=== PATIENT | female | born 2000 | race Caucasian/White ===

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

== ENCOUNTER 2021-08-12 17:28 | Emergency (ER) | payer OTHER, SELFPAY ==
--- OUTSIDE RECORDS SUMMARY | 2021-08-12 17:31 | XMS REPORT | Continuity of Care Document ---
:2000 Author Organization [facility] [place] [facility] t Address [address] [place] [place] [address] Care Team Providers Name Role Phone Shelly NAM Primary Care Physician Unavailable AKINSIPE, C Attending Clinician Unavailable Shelly NAM Attending Clinician Unavailable Lab, Fam Pob I Attending Clinician Unavailable Jack ORTEZ, J Attending Clinician Erasmo JOHNSON Attending Clinician Unavailable Doctor Unassigned, Name Attending Clinician Unavailable Aruna MOLINA Attending Clinician Unavailable Merline CHIPPER FEEDER Attending Clinician Shelly Chavez Attending Clinician Sully REECEP Attending Clinician SULLY Attending Clinician Unavailable ANENE Attending Clinician Unavailable Pcp, Does Not Have A Attending Clinician Payers Payer Name Policy Type Policy Number Effective Date Expiration Date Anita harman [facility] [id number] 2021 00:00:00 FORMERLY [facility] [id number] 2019 [facility] MEDICAID 00:00:00 Problems This patient has no known problems. Allergies, Adverse Reactions, Alerts Allergy Allergy Status Severity Reaction(s) Onset Inactive Treating Comm ents Source Name Type Date Date Clinician Sulfa Propensi Active Hives Univers (Sulfona ty to 1-14 ity of mide adverse 00:00: [place] Antibiot reaction 00 Medica l ics) s Branch Cefixime Propensi Active Hives 2021-0 Univer s ty to 1-14 ity of adverse 00:00: [place] reaction 00 Medical s Branch PENICILL DRUG Active Hives 2020-0 Univers IN INGREDI 1-14 ity of 00:00: [place] 00 Medical Branch CEFIXIME DRUG Active Hives 2020-0 Univers INGREDI 1-14 ity of 00:00: [place] 00 Medical Branch CEFDINIR DRUG Active Hives 2020-0 Univers INGREDI 1-14 ity of 00:00: [place] 00 Medical Branch SULFA Drug Active Hives 0 Univers (SULFONA Class 1-14 ity of MIDE 00:00: [place] ANTIBIOT 00 Medical ICS) Branch Cefdinir Propensi Active Hives 0 Univer s ty to 1-14 ity of adverse 00:00: [place] reaction 00 Medical s Branch Penicill Propensi Active Hives 0 Univer s in ty to 1-14 ity of adverse 00:00: [place] reaction 00 Medical s Branch NO KNOWN Drug Active Univers ALLERGIE Class ity of S [facility] Social History Social Habit Start Date Stop Date Quantity Comments Source Exposure to Yes [facility] SARS-CoV-2 [place] [facility] (event) [place] Tobacco use and 2020-06-11 2020-06-11 Never used Universit y of exposure 00:00:00 00:00:00 [facility] Alcohol intake 2020-06-11 2020-06-11 Current drinker Unive rsity of 00:00:00 00:00:00 of alcohol [facility] (finding) [place] Alcohol Comment 2020-06-11 2020-06-11 socially Universit y of 00:00:00 00:00:00 [facility] Sex Assigned At [birth year] Universit y of 00:00:00 00:00:00 [facility] Smoking Status Start Date Stop Date Source Unknown if ever smoked Universit y of [facility] Never [facility] Medications Ordered Filled Start Stop Current Ordering Indication Dosage Frequency Signature Comments Components Source Medication Medication Date Date Medication? Clinician (SIG) Name Name levothyroxi Yes Take by Un medhat ne sodium 1-14 mouth. ity of (LEVOTHYROX 17:22: [place] INE ORAL) 25 Medical Branch levothyroxi Yes Take by Un medhat ne sodium 1-14 mouth. ity of (LEVOTHYROX 17:22: [place] INE ORAL) 25 Medical Branch levothyroxi Yes Take by Un medhat ne sodium 1-14 mouth. ity of (LEVOTHYROX 17:22: [place] INE ORAL) 25 Medical Branch levothyroxi Yes Take by Un medhat ne sodium 1-14 mouth. ity of (LEVOTHYROX 17:22: [place] INE ORAL) 25 Medical Branch levothyroxi Yes Take by Un medhat ne sodium 1-14 mouth. ity of (LEVOTHYROX 17:22: [place] INE ORAL) 25 Medical Branch levothyroxi Yes Take by Un medhat ne sodium 1-14 mouth. ity of (LEVOTHYROX 17:22: [place] INE ORAL) 25 Medical Branch levothyroxi Yes Take by Un medhat ne sodium 1-14 mouth. ity of (LEVOTHYROX 17:22: [place] INE ORAL) 25 [facility] Immunizations Ordered Filled Immunization Date Status Comments [facility] e Immunization Name Name SARS-COV-2 COVID-19 2020-09-09 Completed Unive rsity of PFIZER VACCINE 00:00:00 [facility] SARS-COV-2 COVID-19 2020-09-09 Completed Unive rsity of PFIZER VACCINE 00:00:00 [facility] SARS-COV-2 COVID-19 2020-08-20 Completed Unive rsity of PFIZER VACCINE 00:00:00 [facility] SARS-COV-2 COVID-19 2020-08-20 Completed Unive rsity of PFIZER VACCINE 00:00:00 [facility] Influenza Virus 2020-06-11 Completed Universit y of Vaccine Quad .5 mL 00:00:00 [facility] IM 6+ MO Branch Influenza Virus 2020-06-11 Completed Universit y of Vaccine Quad .5 mL 00:00:00 [facility] IM 6+ MO Branch Influenza Virus 2020-06-11 Completed Universit y of Vaccine Quad .5 mL 00:00:00 [facility] IM 6+ MO Branch Influenza Virus 2020-06-11 Completed Universit y of Vaccine Quad .5 mL 00:00:00 [facility] IM 6+ MO Branch Influenza Virus 2020-06-11 Completed Universit y of Vaccine Quad .5 mL 00:00:00 [facility] IM 6+ MO Branch Influenza Virus 2020-06-11 Completed Universit y of Vaccine Quad .5 mL 00:00:00 [facility] IM 6+ MO Branch Influenza Virus 2020-06-11 Completed Universit y of Vaccine Quad .5 mL 00:00:00 [facility] IM 6+ MO Branch Vital Signs Vital Name Observation Time Observation Value Comments Source Systolic blood 2020-06-11 16:57:00 118 mm[Hg] Univer sity of pressure [facility] Diastolic blood 2020-06-11 16:57:00 70 mm[Hg] Unive rsity of [facility] Heart rate 2020-06-11 16:57:00 60 /min [facility] Body temperature 2020-06-11 16:57:00 37.06 [facility] Respiratory rate 2020-06-11 16:57:00 16 /min [facility] Body height 2020-06-11 16:57:00 160 cm [facility] Body weight 2020-06-11 16:57:00 71.986 kg [facility] BMI 2020-06-11 16:57:00 28.11 kg/m2 [facility] Procedures Procedure Date / Time Performed Performing Clinician [facility] e EXTERNAL PROVIDER 2020-09-11 05:01:00 Doctor Unassigned, No [facility] RECORDS [facility] FLU VACC ([id number]), 2020-06-11 17:37:12 Guerita Nam [facility], IM, QUAD Medical Bran ch ASSIGNMENT OF BENEFITS 2020-06-11 16:29:47 Doctor Unassigned, No [facility] Name Medical Branch REFERRAL- 2020-05-26 06:01:00 Doctor Unassigned, No [facility] REQUEST/RESPONSE Name [facility] Encounters Start End Encounter Admission Attending Care Care Encounter Source Date/Time Date/Time Type Type Clinicians Facility Department ID 2021-08-05 2021-08-05 Outpatient R LORI [facility] [id number] Univers 15:15:00 15:15:00 SUDHA [id number] ity o f [facility] 2021-08-05 2021-08-05 Outpatient R LORI, [facility] [id number] Univers 15:15:00 15:15:00 SUDHA marry o [facility] 2021-06-16 2021-06-16 Outpatient R LORI, [facility] [id number] Univers 13:45:00 13:45:00 SUDHA [id number] ity o [facility] 2021-06-16 2021-06-16 Outpatient R LORI, [facility] [id number] Univers 13:45:00 13:45:00 SUDHA florence o [facility] 2021-06-14 2021-06-14 Outpatient R YINKA, [facility] [id number] Univers 15:00:00 15:00:00 GUERITA [id number] davian o [facility] 2021-06-14 2021-06-14 Outpatient R YINKA, [facility] [id number] Univers 15:00:00 15:00:00 GUERITA [facility] 2020-12-13 2020-12-13 Laboratory Lab, Adc Fam Pob I [facility] 1.2. 840.114 [id number] Univers 09:27:55 09:47:55 Only Anusha Johnson [facility] [id number] ity of [place] [id number] Devendra as Professio [phone] [address] Office [facility] One 2020-12-13 2020-12-13 Outpatient R JACK [facility] [id number] Univers 09:20:00 09:20:00 ANUSHA ity o [facility] 2020-12-13 2020-12-13 Outpatient R [facility] [id number] Univers 09:00:00 09:00:00 [id number] ity of [facility] 2020-09-11 2020-09-11 Orders Doctor HOUSE 1.2.840.114 [id number] Univers 00:00:00 00:00:00 Only Unassigned, ZACH [id number] ity of [place] [facility] [id number] Devendra as [phone] [address] 2020-09-10 2020-09-10 Outpatient R JESSE [facility] [id number] Univers 08:00:00 08:00:00 [facility] 2020-09-09 2020-09-09 Outpatient R JESSE [facility] [id number] Univers 08:10:00 08:10:00 MARSHALL [facility] 2020-08-20 2020-08-20 [facility] [id number] Univers 08:00:00 07:59:25 MARSHALL [facility] 2020-06-12 2020-06-12 Laboratory Lab, Adc Fam Pob I [facility] 1.2. 840.114 [id number] Univers 15:20:50 15:40:50 Only Merline [facility] [id number] [facility] [id number] Devendra as Professio [phone] Hi dical [address] Office Building One 2020-06-12 2020-06-12 Outpatient R [facility] [id number] Univers 15:20:00 15:20:00 [id number] ity [facility] 2020-06-12 2020-06-12 Outpatient R [facility] [id number] Univers 15:20:00 15:20:00 [facility] 2020-06-11 2020-06-11 [facility] 1.2.840.114 [id number] Univers 10:39:27 11:52:50 Visit Floramatilda Bravo [employer]NA[employer] [id number] [facility] [id number] Devendra as MATERNAL [phone] Med ical & CHILD [address] [place] [address] 2020-06-11 2020-06-11 [facility] [id number] Univers 10:00:00 11:52:50 GUERITA marry o [facility] 2020-06-11 2020-06-11 [facility] [id number] Univers 10:00:00 10:00:00 GUERITA [id number] ity o [facility] 2020-06-112020-06-11 Outpatient R YINKA [facility] [id number] Univers 10:00:00 10:00:00 GUERITA ity o f [facility] 2020-06-11 2020-06-11 Orders Doctor LACY 1.2.840.114 [id number] Univers 00:00:00 00:00:00 Only Unassigned, ZACH [id number] ity of [place] [facility]PITAL [id number] Devendra as [phone] [address] 2020-05-26 2020-05-26 Orders Doctor LACY 1.2.840.114 [id number] Univers 00:00:00 00:00:00 Only Unassigned, ZACH [id number] ity of [place] [facility]OSPITAL [id number] Devendra as [phone] [address] 2020-04-19 2020-04-19 Laboratory Lab, [facility] Fam Pob I [facility] 1.2. 840.114 [id number] Univers 08:22:30 08:42:30 Only Green, [facility] [id number] ity of [place] [id number] Devendra as Professio [phone] Hi dical [address] Office Building [facility] 2020-04-19 2020-04-19 Outpatient R [facility] [id number] Univers 08:20:00 08:20:00 [id number] ity [facility] 2020-04-19 2020-04-19 [facility] [id number] Univers 08:20:00 08:20:00 SAMANTHA ity [facility] 2020-01-02 2020-01-02 Laboratory Lab, [facility] 1.2.840.114 [id number] 09:29:38 09:49:38 Only Fam Pob I Health [id number] [place] [id number] Professio [phone] nal [facility] Office Building [facility] 2020-01-02 2020-01-02 Laboratory Lab, [facility] Fam Pob I [facility] 1.2. 840.114 [id number] Univers 09:29:38 09:49:38 Only Anene, [facility] [id number] ity of [place] [id number] Devendra as Professio [phone] Hi dical [address] Office [facility] 2020-01-02 2020-01-02 Outpatient R EMRLINE [facility] [id number] Univers 09:20:00 09:20:00 SHIKHA ity of [facility] 2020-01-02 2020-01-02 Letter Doctor LACY 1.2.840.114 [id number] 00:00:00 00:00:00 (Out) Unassigned, ZACH [id number] [place] [facility] [id number] [phone] [facility] 2020-01-02 2020-01-02 Letter Pcp, [facility] 1.2.840.114 [id number] 00:00:00 00:00:00 (Out) Patient Health [id number] Does Not [place] [id number] Have A Professio [phone] [address] 2020-01-02 2020-01-02 Letter Doctor LACY 1.2.840.114 [id number] Univers 00:00:00 00:00:00 (Out) Unassigned, ZACH [id number] ity of [place] [facility]OSPITAL [id number] Devendra as [phone] [address] 2020-01-02 2020-01-02 Letter Pcp, [facility] 1.2.840.114 [id number] Univers 00:00:00 00:00:00 (Out) Patient Health [id number] it y of Does Not [id number] [place] Have [place] Professio [phone] Hi dical nal [address] [place] Office Building One Results This patient has no known results.
[2021-08-12 19:22] LABS: SARS-COV-2 RT PCR POSITIVE (NEGATIVE)
--- NOTE | 2021-08-12 20:04 | EDPHYS ---
Physician Documentation [facility] Name: Nasra Whitmore Age: 21 yrs Sex: Female : 2000 Arrival Date: 08/12/2021 Time: 17:30 Bed 26 Private MD: ED Physician Augie Patterson HPI: 08/12 17:46 This 21 yrs old Female presents to ER via Unassigned with complaints of Sore Throat, kb Cough. 17:46 The patient or guardian reports cough, that is intermittent, described as mild, flu kb symptoms, low-grade fever. Onset: The symptoms/episode began/occurred 2 day(s) ago. Severity of symptoms: At their worst the symptoms were moderate, in the emergency department the symptoms are unchanged. Modifying factors: The symptoms are alleviated by nothing, the symptoms are aggravated by nothing. Associated signs and symptoms: Pertinent positives: earache, fever, rhinorrhea, sore throat, Pertinent negatives: chest pain, diarrhea, nausea, vomiting. The patient has not experienced similar symptoms in the past. The patient has not recently seen a physician. 17:46 Pt reports cough, congestion, fever, chills, bilateral ear pain, and sore throat for 2 kb days, got worse last night and this morning. TMAX 102.3. 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 - Social history:: Smoking status: Patient denies any tobacco usage or history of. Patient uses alcohol, occasionally. street drugs, marijuana. ROS: 17:45 Abdomen/GI: Negative for abdominal pain, nausea, vomiting, diarrhea, and constipation. kb 17:45 Constitutional: Positive for chills, fever, malaise, Negative for body aches. 17:45 ENT: Positive for ear pain, rhinorrhea, sinus congestion, sore throat. 17:45 Respiratory: Positive for cough. 17:45 All other systems are negative. Exam: 17:45 Constitutional: This is a well developed, well nourished patient who is awake, alert, kb and in no acute distress. Head/Face: Normocephalic, atraumatic. ENT: Moist Mucous membranes Cardiovascular: Regular rate and rhythm with a normal S1 and S2. No gallops, murmurs, or rubs. No pulse deficits. Respiratory: Respirations even and unlabored. No increased work of breathing. Talking in full sentences Skin: Warm, dry with normal turgor. Normal color. MS/ Extremity: Pulses equal, no cyanosis. Neurovascular intact. Full, normal range of motion. Neuro: Awake and alert, GCS 15, oriented to person, place, time, and situation. Moves all extremities. Normal gait. Psych: Awake, alert, with orientation to person, place and time. Behavior, mood, and affect are within normal limits. 17:45 ENT: External ear(s): are unremarkable, Ear canal(s): are normal, TM's: are normal, Posterior pharynx: is normal. Vital Signs: 17:51 BP 130 / 93; Pulse 109; Resp 18; Temp 98.3(O); Pulse Ox 100% on R/A; Weight 72.57 kg; ld1 Height 5 ft. 3 in. (160.02 cm); Pain 0/10; 18:42 BP 129 / 88; Pulse 101; Resp 18; Pulse Ox 100% on R/A; Pain 0/10; ld1 20:19 BP 129 / 88; Pulse 89; Resp 20; Pulse Ox 100% on R/A; sf1 17:51 Body Mass Index 28.34 (72.57 kg, 160.02 cm) ld1 MDM: 17:43 Patient medically screened. kb 17:45 Data reviewed: vital signs, nurses notes. Data interpreted: Pulse oximetry: on room air kb is 100 %. Interpretation: normal. Transition of care: After a detail discussion of the patient's case, care is transferred to Jon RICHARD 08/12 17:45 Order name: COVID-19/FLU A+B (Document "Date of Onset" if Symptomatic); Complete Time: kb 19:52 08/12 19:52 Interpretation: Reviewed. cp 08/12 17:45 Order name: Strep; Complete Time: 19:52 kb 08/12 18:11 Order name: Throat Culture EDMS Administered Medications: No medications were administered Disposition: 08/13 09:27 I agree with the assessment and plan of care. PA/SURGICAL ASSISTANT CERTIFIED's history reviewed, patient neena interviewed, and examined. I agree with assessment and care plan and confirm the diagnosis (es) above. Attestation: The patient's history, exam findings, diagnostics, and a summary of any interventions or procedures was reviewed in detail with Jon DEL ROSARIO. Disposition Summary: 08/12/21 20:03 Discharge Ordered Location: Home cp Problem: new cp Symptoms: are unchanged cp Condition: Stable cp Diagnosis - SARS-associated coronavirus as the cause of diseases classified elsewhere cp Followup: cp - With: Private Physician - When: 2 - 3 days - Reason: Worsening of condition Discharge Instructions: - Discharge Summary Sheet cp - Form - Excuse from Work, School, or Physical Activity cp - COVID-19 cp - Things to Know about the COVID-19 Pandemic - [facility] cp - 10 Things You Can Do to Manage Your COVID-19 Symptoms at Home - [facility] cp - COVID-19: Quarantine vs. Isolation - [facility] cp - Prevent the Spread of COVID-19 if You Are Sick - [facility] cp Forms: - Medication Reconciliation Form cp - Thank You Letter cp - Antibiotic Education cp - Prescription Opioid Use cp Prescriptions: - Ibuprofen 800 mg Oral Tablet - take 1 tablet by ORAL route every 8 hours As needed take with food; 30 tablet; cp Refills: 0, Product Selection Permitted - Tessalon Perles 100 mg Oral Capsule - take 1 capsule by ORAL route every 8 hours As needed; 15 capsule; Refills: 0, cp Product Selection Permitted Signatures: Dispatcher [employer] EDMS Tamika Burgess FNP-C FNP-Jon Gonzalez PA PA cp Debbie Dye RN RN ld1 Augie Patterson MD MD [id number]
--- NOTE | 2021-08-12 20:04 | ER ---
Nurse's Notes [facility] Name: Nasra Whitmore Age: 21 yrs Sex: Female : 2000 Arrival Date: 08/12/2021 Time: 17:30 Bed 26 Private MD: Diagnosis: SARS-associated coronavirus as the cause of diseases classified elsewhere Presentation: 08/12 17:51 Chief complaint: Patient states: fever, chills, sore throat, congestion, cough, RONDA ear ld1 pain X 2 days. Coronavirus screen: Client presents with at least one sign or symptom that may indicate coronavirus-19. Standard/surgical mask placed on the client. Ebola Screen: No symptoms or risks identified at this time. Initial Sepsis Screen: Does the patient meet any 2 criteria? No. Patient's initial sepsis screen is negative. Does the patient have a suspected source of infection? No. Patient's initial sepsis screen is negative. Risk Assessment: Do you want to hurt yourself or someone else? Patient reports no desire to harm self or others. Onset of symptoms was August 12, 2021. 17:51 Method Of Arrival: Ambulatory ld1 17:51 Acuity: JEANNINE 4 ld1 Triage Assessment: 17:52 General: Appears in no apparent distress. comfortable, Behavior is calm, cooperative, ld1 appropriate for age. Pain: Denies pain. EENT: Reports sore throat. Neuro: Level of Consciousness is awake, alert, obeys commands, Oriented to person, place, time, situation. Cardiovascular: Capillary refill < 3 seconds Patient's skin is warm and dry. Respiratory: Airway is patent Respiratory effort is even, unlabored, Respiratory pattern is regular, symmetrical. GI: Abdomen is flat, non-distended. : No signs and/or symptoms were reported regarding the genitourinary system. Derm: No signs and/or symptoms reported regarding the dermatologic system. Musculoskeletal: No signs and/or symptoms reported regarding the musculoskeletal system. 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 - Social history:: Smoking status: Patient denies any tobacco usage or history of. Patient uses alcohol, occasionally. street drugs, marijuana. Screenin:53 Abuse screen: Denies threats or abuse. Denies injuries from another. Nutritional ld1 screening: No deficits noted. Tuberculosis screening: No symptoms or risk factors identified. Fall Risk None identified. Assessment: 17:53 Reassessment: see triage assessment. Respiratory: Airway is patent Respiratory effort ld1 is even, unlabored, Breath sounds are clear bilaterally. 18:47 Reassessment: Patient appears in no apparent distress at this time. Patient and/or ld1 family updated on plan of care and expected duration. Pain level reassessed. Patient is alert, oriented x 3, equal unlabored respirations, skin warm/dry/pink. Vital Signs: 17:51 BP 130 / 93; Pulse 109; Resp 18; Temp 98.3(O); Pulse Ox 100% on R/A; Weight 72.57 kg; ld1 Height 5 ft. 3 in. (160.02 cm); Pain 0/10; 18:42 BP 129 / 88; Pulse 101; Resp 18; Pulse Ox 100% on R/A; Pain 0/10; ld1 20:19 BP 129 / 88; Pulse 89; Resp 20; Pulse Ox 100% on R/A; sf1 17:51 Body Mass Index 28.34 (72.57 kg, 160.02 cm) ld1 ED Course: 17:30 Patient arrived in ED. ds1 17:32 Tamika Burgess FNP-C is PHCP. kb 17:32 Augie Patterson MD is Attending Physician. kb 17:50 PHCP role handed off by Tamika Burgess FNP-C cp 17:50 Jon Gonzalez PA is PHCP. cp 17:51 Debbie Dye, LEE ANN is Primary Nurse. ld1 17:51 Triage completed. ld1 17:52 Arm band placed on left wrist. ld1 17:53 Patient has correct armband on for positive identification. Placed in gown. Bed in low ld1 position. Call light in reach. Side rails up X2. Pulse ox on. NIBP on. Door closed. Noise minimized. Warm blanket given. 17:53 No provider procedures requiring assistance completed. ld1 17:54 COVID-19/FLU A+B (Document "Date of Onset" if Symptomatic) Sent. ld1 17:54 Strep Sent. ld1 20:20 Patient did not have IV access during this emergency room visit. sf1 Administered Medications: No medications were administered Outcome: 20:03 Discharge ordered by . katie 20:19 Discharged to home ambulatory. sf1 20:19 Condition: stable 20:19 Discharge instructions given to patient, Instructed on discharge instructions, follow up and referral plans. Demonstrated understanding of instructions, follow-up care, medications, Prescriptions given X 2. 20:20 Patient left the ED. sf1 Signatures: Tamika Burgess, [employer]CH[employer]ER-C [employer] MERCH[employer]ER-Karo Martinez ds1 Jon Gonzalez PA PA cp Dibbern, Lauren, RN RN ld1 Zahraa Kaba RN RN sf1
[2021-08-12 20:36] VITALS: TEMP 98.3; O2SAT 100
[2021-08-12 20:37] VITALS: BP 129/88
== END 2021-08-12 20:20 | disposition home or self-care (01) ==
LOC: ER 17:28
DX: U07.1 COVID-19 (principal); H92.03 Otalgia, bilateral; E07.9 Disorder of thyroid, unspecified; Z88.0 Allergy status to penicillin; Z88.1 Allergy status to other antibiotic agents; Z88.2 Allergy status to sulfonamides; Z88.8 Allergy status to other drugs, medicaments and biological substances
CPT/HCPCS: 0240U; 87070; 87081; 99283

== ENCOUNTER 2021-09-28 05:31 | Emergency (ER) | payer SELFPAY ==
--- OUTSIDE RECORDS SUMMARY | 2021-09-28 05:35 | XMS REPORT | Continuity of Care Document ---
:2000 Author Organization [facility] [place] [facility] t Address [address] [place] [address] Care Team Providers Name Role Phone Yinka ORTEZ, Shelly Primary Care Physician Raven RN, L Attending Clinician Unavailable Glen SANDOVAL Attending Clinician Unavailable Shelly NAM Attending Clinician Unavailable Lab, Fam Pob I Attending Clinician Unavailable Erasmo Ramsey Attending Clinician Erasmo JOHNSON Attending Clinician Unavailable Doctor Unassigned, Name Attending Clinician Unavailable Aruna MOLINA Attending Clinician Unavailable Merline ORTEZ Attending Clinician Shelly Chavez Attending Clinician Sully REECEP Attending Clinician SULLY Attending Clinician Unavailable ANENE Attending Clinician Unavailable Pcp, Does Not Have A Attending Clinician Payers Payer Name Policy Type Policy Number Effective Date Expiration Date Formerly [facility] [id number] 2019 [employer] MEDICA[employer] 00:00:00 Problems This patient has no known problems. Allergies, Adverse Reactions, Alerts Allergy Allergy Status Severity Reaction(s) Onset Inactive Treating Comm ents Source Name Type Date Date Clinician Penicill Propensi Active Hives 2020-0 Univer s in ty to 1-14 ity of adverse 00:00: [place] reaction 00 Medical s Branch Sulfa Propensi Active Hives 2020-0 Univers (Sulfona ty to 1-14 ity of mide adverse 00:00: [place] Antibiot reaction 00 Medica l ics) s Branch Cefixime Propensi Active Hives 2020-0 Univer s ty to 1-14 ity of [...] 00 Medical Branch SULFA Drug Active Hives 2020-0 Univers (SULFONA Class 1-14 ity of MIDE 00:00: [place] ANTIBIOT 00 Medical ICS) Branch Cefdinir Propensi Active Hives 2020-0 Univer s ty to 1-14 ity of adverse 00:00: [place] reaction 00 Medical s Branch NO KNOWN Drug Active Univers ALLERGIE Class ity of S [facility] Social History Social Habit Start Date Stop Date Quantity Comments Source Exposure to Yes University of SARS-CoV-2 [place] [facility] (event) [facility] History SDOH 2020-06-11 2020-06-11 99 University o f Alcohol Frequency 00:00:00 00:00:00 [place] [facility] History SDOH 2020-06-11 2020-06-11 99 University o f Alcohol Std 00:00:00 00:00:00 [place] [facility] History SDOH 2020-06-11 2020-06-11 99 University o f Alcohol Binge 00:00:00 00:00:00 [place] [facility] Tobacco use and 2020-06-11 2020-06-11 Never used Universit y of exposure 00:00:00 00:00:00 [facility] Alcohol intake 2020-06-11 2020-06-11 Current drinker Unive rsity of 00:00:00 00:00:00 of alcohol [place] [facility] (finding[facility] Alcohol Comment 2020-06-11 2020-06-11 socially Universit y of 00:00:00 00:00:00 [facility] Sex Assigned At [birth year] Universit y of 00:00:00 00:00:00 [facility] Smoking Status Start Date Stop Date Source Unknown if ever smoked [facility] Never smoker [facility] Medications Ordered Filled Start Stop Current Ordering Indication Dosage Frequency Signature Comments Components Source Medication Medication Date Date Medication? Clinician (SIG) Name Name levothyroxi Yes Take by Un medhat ne sodium 1-14 mouth. ity of (LEVOTHYROX 17:22: [place] INE ORAL) [facility] levothyroxi Yes Take by Un medhat ne sodium 1-14 mouth. ity of (LEVOTHYROX 17:22: [place] INE ORAL) 25 [facility] levothyroxi Yes Take by Un medhat ne sodium 1-14 mouth. ity of (LEVOTHYROX 17:22: [place] INE ORAL) 25 [facility] levothyroxi Yes Take by Un medhat ne sodium 1-14 mouth. ity of (LEVOTHYROX 17:22: [place] INE ORAL) 25 [facility] levothyroxi Yes Take by Un medhat ne sodium 1-14 mouth. ity of (LEVOTHYROX 17:22: [place] INE ORAL) 25 [facility] levothyroxi Yes Take by Un medhat ne sodium 1-14 mouth. ity of (LEVOTHYROX 17:22: [place] INE ORAL) 25 [facility] levothyroxi Yes Take by Un medhat ne sodium 1-14 mouth. ity of (LEVOTHYROX 17:22: [place] INE ORAL) 25 [facility] levothyroxi Yes Take by Un medhat ne sodium 1-14 mouth. ity of (LEVOTHYROX 11:22: [place] INE ORAL) [address] [place] [address] Immunizations Ordered Filled Immunization Date Status Comments Sour e Immunization Name Name SARS-COV-2 COVID-19 2020-09-09 Completed Unive rsity of PFIZER VACCINE 00:00:00 [facility] SARS-COV-2 COVID-19 2020-09-09 Completed Unive rsity of PFIZER VACCINE 00:00:00 [facility] SARS-COV-2 COVID-19 2020-09-09 Completed Unive rsity of PFIZER VACCINE 00:00:00 [facility] SARS-COV-2 COVID-19 2020-08-20 Completed Unive rsity of PFIZER VACCINE 00:00:00 [facility] SARS-COV-2 COVID-19 2020-08-20 Completed Unive rsity of PFIZER VACCINE 00:00:00 [facility] SARS-COV-2 COVID-19 2020-08-20 Completed Unive rsity of PFIZER VACCINE 00:00:00 [facility] Influenza Virus 2020-06-11 Completed Universit y of Vaccine Quad .5 mL 00:00:00 [facility] 6+ MO Branch Influenza Virus 2020-06-11 Completed Universit y of Vaccine Quad .5 mL 00:00:00 [facility] 6+ MO Branch Influenza Virus 2020-06-11 Completed Universit y of Vaccine Quad .5 mL 00:00:00 [facility] IM 6+ MO Branch Influenza Virus 2020-06-11 Completed Universit y of Vaccine Quad .5 mL 00:00:00 [place] [facility] 6+ MO Branch Influenza Virus 2020-06-11 Completed Universit y of Vaccine Quad .5 mL 00:00:00 [facility] 6+ MO Branch Influenza Virus 2020-06-11 Completed Universit y of Vaccine Quad .5 mL 00:00:00 [facility] 6+ MO Branch Influenza Virus 2020-06-11 Completed Universit y of Vaccine Quad .5 mL 00:00:00 [facility] 6+ MO Branch Influenza Virus 2020-06-11 Completed Universit y of Vaccine Quad .5 mL 00:00:00 [facility] 6+ MO Branch Vital Signs Vital Name Observation Time Observation Value Comments Source Systolic blood 2020-06-11 16:57:00 118 mm[Hg] Univer sity of pressure [facility] Diastolic blood 2020-06-11 16:57:00 70 mm[Hg] Unive rsity of pressure [facility] Heart rate 2020-06-11 16:57:00 60 /min [facility] Body temperature 2020-06-11 16:57:00 37.06 Maria E [facility] Respiratory rate 2020-06-11 16:57:00 16 /min [facility] Body height 2020-06-11 16:57:00 160 cm [facility] Body weight 2020-06-11 16:57:00 71.986 kg [facility] BMI 2020-06-11 16:57:00 28.11 kg/m2 [facility] Procedures Procedure Date / Time Performed Performing Clinician Sunita e EXTERNAL PROVIDER 2020-09-11 05:01:00 Doctor Unassigned, No [facility] RECORDS Name Medical Branch FLU VACC ([id number]), 2020-06-11 17:37:12 Guerita Nam [facility] 6+ MONTHS, IM, QUAD Medical Bran ch ASSIGNMENT OF BENEFITS 2020-06-11 16:29:47 Doctor Unassigned, No [facility] Name Medical Branch REFERRAL- 2020-05-26 06:01:00 Doctor Unassigned, No [facility] REQUEST/RESPONSE Name [facility] Encounters Start End Encounter Admission Attending Care Care Encounter Source Date/Time Date/Time Type Type Clinicians Facility Department ID 2021-09-02 2021-09-02 Telephone Raven NIÑO [id number] Univers 00:00:00 00:00:00 , Chantell DECKER [id number] [id number] [phone] [facility] 086 Branch 2021-08-05 2021-08-05 Outpatient R AKINSIPE, [facility] [id number] Univers 15:15:00 15:15:00 SUDHA [id number] ity o f [facility] 2021-08-05 2021-08-05 Outpatient R AKINSIPE, [facility] [id number] Univers 15:15:00 15:15:00 SUDHA ity o [facility] 2021-06-16 2021-06-16 Outpatient R AKINSIPE, [facility] [id number] Univers 13:45:00 13:45:00 SUDHA [id number] ity o [facility] 2021-06-16 2021-06-16 Outpatient R AKINSIPE, [facility] [id number] Univers 13:45:00 13:45:00 SUDHA ity o [facility] 2021-06-14 2021-06-14 Outpatient R YINKA, [facility] [id number] Univers 15:00:00 15:00:00 GUERITA [id number] ity o f [facility] 2021-06-14 2021-06-14 Outpatient R YINKA [facility] [id number] Univers 15:00:00 15:00:00 GUERITA ity o f [facility] 2020-12-13 2020-12-13 Laboratory Lab, [facility] 1.2. [id number] Univers 09:27:55 09:47:55 Only Anusha [facility] [id number] ity of [place] [id number] Devendra as Professio [phone] [address] Office [address] 2020-12-13 2020-12-13 Outpatient R ALEX [facility] [id number] Univers 09:20:00 09:20:00 ANUSHA ity o [facility] 2020-12-13 2020-12-13 Outpatient R [facility] [id number] Univers 09:00:00 09:00:00 [id number] ity [facility] 2020-09-11 2020-09-11 Orders Doctor LACY [id number] Univers 00:00:00 00:00:00 Only Unassigned, ZACH [id number] ity of [place] [facility] [id number] Devendra as [phone] [address] 2020-09-10 2020-09-10 [facility] [id number] Univers 08:00:00 08:00:00 MARSHALL ity [facility] 2020-09-09 2020-09-09 Outpatient R JESSE [facility] [id number] Univers 08:10:00 08:09:26 MARSHALL ity [facility] 2020-08-20 2020-08-20 Out[facility] [id number] Univers 08:00:00 07:59:25 MARSHALL ity [facility] 2020-06-12 2020-06-12 Laboratory Lab, [facility] 1.2. [id number] Univers 15:20:50 15:40:50 Only Shikha Rick [facility] [id number] ity [facility] [id number] Devendra as Professio [phone] Va dical [address] Office [facility] 2020-06-12 2020-06-12 Outpatient R [facility] [id number] Univers 15:20:00 15:20:00 [id number] ity [facility] 2020-06-12 2020-06-12 Outpatient R [facility] [id number] Univers 15:20:00 15:20:00 ity [facility] 2020-06-11 2020-06-11 Office [facility] [id number] Univers 10:39:27 11:52:50 Visit Florarory Bravo [employer] [id number] ity [facility] [id number] Devendra as MATERNAL [phone] Med ical & CHILD [address] [place] [address] 2020-06-11 2020-06-11 [facility] [id number] Univers 10:00:00 11:52:50 ROSNDA ity o [facility] 2020-06-11 2020-06-11 Outpatient [facility] [id number] Univers 10:00:00 10:00:00 FLORARORY [id number] ity o [facility] 2020-06-11 2020-06-11 Out[facility] [id number] Univers 10:00:00 10:00:00 ROSNDA ity o [facility] 2020-06-11 2020-06-11 Orders Doctor HOUSE [id number] Univers 00:00:00 00:00:00 Only Unassigned, ZACH [id number] ity of [facility] [id number] Devendra as [phone] [address] 2020-05-26 2020-05-26 Orders Doctor HOUSE [id number] Univers 00:00:00 00:00:00 Only Unassigned, ZACH [id number] ity of [place] [facility] [id number] Devendra as [phone] [address] 2020-04-19 2020-04-19 Laboratory Lab, [facility] Fam Pob I [facility] 1.2. 840.114 [id number] [facility] 08:22:30 08:42:30 Only [facility] [id number] ity of [place] [id number] Devendra as Professio [phone] Va dical nal [address] [place] [address] Office [facility] 2020-04-19 2020-04-19 Outpatient R [facility] [id number] Univers 08:20:00 08:20:00 [id number] ity of [facility] 2020-04-19 2020-04-19 Outpatient [facility] [id number] [facility] 08:20:00 08:20:00 SAMANTHA ity of [facility] 2020-01-02 2020-01-02 Laboratory Lab, [facility] [id number] 09:29:38 09:49:38 Only Fam Pob I Health [id number] [place] [id number] Professio [phone] [place] [address] Office [facility] 2020-01-02 2020-01-02 Laboratory Lab, [facility] Fam Pob I [facility] 1.2. 840.114 [id number] [facility] 09:29:38 09:49:38 Only Anejackeline, Shikha Health [id number] ity of [place] [id number] Devendra as Professio [phone] Va dical nal [address] [place] [address] Office Building [facility] 2020-01-02 2020-01-02 Outpatient R KIERANJACKELINE [facility] [id number] Univers 09:20:00 09:20:00 SHIKHA ity of [facility] 2020-01-02 2020-01-02 Letter Doctor HOUSE [id number] 00:00:00 00:00:00 (Out) Unassigned, ZACH [id number] [place] [facility] [phone] [facility] 2020-01-02 2020-01-02 Letter Pcp, [facility] 1.2.840.114 [id number] 00:00:00 00:00:00 (Out) Patient Health [id number] Does Not [place] [id number] Have A Professio [phone] [place] [address] [address] [facility] 2020-01-02 2020-01-02 Letter Doctor LACY 1.2.840.114 [id number] Univers 00:00:00 00:00:00 (Out) Unassigned, ZACH [id number] ity of [place] [facility] [id number] Devendra as [phone] [address] 2020-01-02 2020-01-02 Letter Pcp, [facility] 1.2.840.114 [id number] Univers 00:00:00 00:00:00 (Out) Patient Health [id number] it y of Does Not [id number] Have A Professio [phone] Va dical [address] Office [address] [facility] Results This patient has no known results.
--- NOTE | 2021-09-28 06:49 | EDPHYS ---
Physician Documentation [facility] Name: Nasra Whitmore Age: 21 yrs Sex: Female : 2000 Arrival Date: 09/28/2021 Time: 05:32 Bed 12 Private MD: BE Physician Jon Richardson HPI: 09/28 06:45 This 21 yrs old Female presents to ER via Ambulatory with complaints of flavia Insect Bite - Left foot. 06:45 The patient presents with a bite, by an insect. The complaints affect the left foot. flavia Context: The problem was sustained at an unknown location. Onset: The symptoms/episode began/occurred 2 day(s) ago. Modifying factors: The symptoms are alleviated by nothing, the symptoms are aggravated by. Associated signs and symptoms: The patient has no apparent associated signs or symptoms. Severity of symptoms: At their worst the symptoms were mild, in the emergency department the symptoms are unchanged. The patient has not experienced similar symptoms in the past. 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 - Social history:: Smoking status: Patient denies any tobacco usage or history of. - Family history:: not pertinent. ROS: 06:45 Constitutional: Negative for fever, chills, and weight loss, Eyes: Negative for injury, flavia pain, redness, and discharge, ENT: Negative for injury, pain, and discharge, Neck: Negative for injury, pain, and swelling, Cardiovascular: Negative for chest pain, palpitations, and edema, Respiratory: Negative for shortness of breath, cough, wheezing, and pleuritic chest pain, Abdomen/GI: Negative for abdominal pain, nausea, vomiting, diarrhea, and constipation, Back: Negative for injury and pain, : Negative for injury, bleeding, discharge, and swelling, MS/Extremity: Negative for injury and deformity, Neuro: Negative for headache, weakness, numbness, tingling, and seizure, Psych: Negative for depression, anxiety, suicide ideation, homicidal ideation, and hallucinations, Allergy/Immunology: Negative for hives, rash, and allergies, Endocrine: Negative for neck swelling, polydipsia, polyuria, polyphagia, and marked weight changes, Hematologic/Lymphatic: Negative for swollen nodes, abnormal bleeding, and unusual bruising. 06:45 Skin: Positive for erythema, swelling, of the anterior aspect of left ankle. Exam: 06:45 Constitutional: This is a well developed, well nourished patient who is awake, alert, flavia and in no acute distress. Head/Face: Normocephalic, atraumatic. Eyes: Pupils equal round and reactive to light, extra-ocular motions intact. Lids and lashes normal. Conjunctiva and sclera are non-icteric and not injected. Cornea within normal limits. Periorbital areas with no swelling, redness, or edema. ENT: Nares patent. No nasal discharge, no septal abnormalities noted. Tympanic membranes are normal and external auditory canals are clear. Oropharynx with no redness, swelling, or masses, exudates, or evidence of obstruction, uvula midline. Mucous membranes moist. Neck: Trachea midline, no thyromegaly or masses palpated, and no cervical lymphadenopathy. Supple, full range of motion without nuchal rigidity, or vertebral point tenderness. No Meningismus. Chest/axilla: Normal chest wall appearance and motion. Nontender with no deformity. No lesions are appreciated. Cardiovascular: Regular rate and rhythm with a normal S1 and S2. No gallops, murmurs, or rubs. Normal PMI, no JVD. No pulse deficits. Respiratory: Lungs have equal breath sounds bilaterally, clear to auscultation and percussion. No rales, rhonchi or wheezes noted. No increased work of breathing, no retractions or nasal flaring. Abdomen/GI: Soft, non-tender, with normal bowel sounds. No distension or tympany. No guarding or rebound. No evidence of tenderness throughout. Back: No spinal tenderness. No costovertebral tenderness. Full range of motion. Neuro: Awake and alert, GCS 15, oriented to person, place, time, and situation. Cranial nerves II-XII grossly intact. Motor strength 5/5 in all extremities. Sensory grossly intact. Cerebellar exam normal. Normal gait. Psych: Awake, alert, with orientation to person, place and time. Behavior, mood, and affect are within normal limits. 06:45 Skin: cellulitis, that is mild, induration, that is mild is noted, injury, bite(s), superficial. 06:45 Musculoskeletal/extremity: DVT Exam: No signs of deep vein thrombosis. no pain, no flavia swelling, negative Homans' sign noted on exam, no appreciated bluish discoloration, tenderness, erythema, increased warmth. Vital Signs: 05:45 BP 137 / 84; Pulse 60; Resp 16 S; Temp 98(O); Pulse Ox 100% on R/A; Weight 72.57 kg bb (R); Height 5 ft. 3 in. (160.02 cm) (R); Pain 3/10; 05:45 Body Mass Index 28.34 (72.57 kg, 160.02 cm) bb MDM: 06:14 Patient medically screened. flavia 06:47 Differential diagnosis: cellulitis. Data reviewed: vital signs, nurses notes, lab test flavia result(s). 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 Counseling: I had a detailed discussion with the patient and/or guardian regarding: the historical points, exam findings, and any diagnostic results supporting the discharge/admit diagnosis, the need for outpatient follow up, for definitive care, a family practitioner. 09/28 06:44 Order name: Ice pack; Complete Time: 06:49 flavia Administered Medications: 06:50 Drug: Doxycycline 200 mg Route: PO; bb 07:03 Follow up: Response: No adverse reaction bb 06:50 Drug: Benadryl (diphenhydrAMINE) 25 mg Route: PO; bb 07:03 Follow up: Response: No adverse reaction bb Disposition Summary: 09/28/21 06:49 Discharge Ordered Location: Home flavia Problem: new flavia Symptoms: have improved flavia Condition: Stable flavia Diagnosis - Insect bite (nonvenomous) of lower leg flavia Followup: flavia - With: Private Physician - When: 2 - 3 days - Reason: Recheck today's complaints, Continuance of care, Re-evaluation by your physician Followup: flavia - With: Shaheed Barajas, DO - When: 2 - 3 days - Reason: Recheck today's complaints, Re-evaluation by your physician Discharge Instructions: - Discharge Summary Sheet flavia - Insect Bite, Adult, [id number] flavia - Insect Bite, Adult flavia - Cellulitis, Adult flavia - Cellulitis, Adult, [id number] [facility] Forms: - Medication Reconciliation Form [facility] - Thank You Letter flavia - Antibiotic Education [facility] - Prescription Opioid Use [facility] Prescriptions: - Benadryl 25 mg Oral Capsule - take 1 capsule by ORAL route every 6 hours As needed; 30 tablet; Refills: 0, [facility] Product Selection Permitted - Doxycycline Hyclate 100 mg Oral Tablet - take 1 tablet by ORAL route every 12 hours; 20 tablet; Refills: 0, Product [facility] Selection Permitted - Ibuprofen 600 mg Oral Tablet - take 1 tablet by ORAL route every 6 hours As needed take with food; 20 tablet; [facility] Refills: 0, Product Selection Permitted Signatures: Jon Richardson MD MD cha Ballard, Brenda RN RN bb
--- NOTE | 2021-09-28 06:49 | ER ---
Nurse's Notes [facility] Name: Nasra Whitmore Age: 21 yrs Sex: Female : 2000 Arrival Date: 09/28/2021 Time: 05:32 Bed 12 Private MD: Diagnosis: Insect bite (nonvenomous) of lower leg Presentation: 09/28 05:45 Chief complaint: Patient states: she was walking in the [place] around 1430 yesterday and bb thinks she got a black- spider bite to the top of her right foot. It bower and itches. Coronavirus screen: At this time, the client does not indicate any symptoms associated with coronavirus-19. Ebola Screen: No symptoms or risks identified at this time. Initial Sepsis Screen: Does the patient meet any 2 criteria? No. Patient's initial sepsis screen is negative. Does the patient have a suspected source of infection? No. Patient's initial sepsis screen is negative. Risk Assessment: Do you want to hurt yourself or someone else? Patient reports no desire to harm self or others. Onset of symptoms was September 27, 2021. 05:45 Method Of Arrival: Ambulatory 05:45 Acuity: JEANNINE 5 bb Triage Assessment: 05:47 Bite description: bite sustained to right foot by a spider, animal information: bb vaccination(s) is not applicable. General: Appears in no apparent distress. Behavior is calm, cooperative. Pain: Complains of pain in right foot Pain currently is 5 out of 10 on a pain scale. Neuro: Level of Consciousness is awake, alert, obeys commands, Oriented to person, place, time, situation. Cardiovascular: Capillary refill < 3 seconds Patient's skin is warm and dry. Respiratory: Airway is patent Respiratory effort is even, unlabored, Respiratory pattern is regular, symmetrical. GI: No deficits noted. Derm: Skin is pink, warm \T\ dry. reddened area to top of right foot with 3 small bumps. Musculoskeletal: Circulation, motion, and sensation intact. 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 - Social history:: Smoking status: Patient denies any tobacco usage or history of. - Family history:: not pertinent. Screenin:45 Abuse screen: Denies threats or abuse. Nutritional screening: No deficits noted. bb Tuberculosis screening: No symptoms or risk factors identified. Fall Risk None identified. Assessment: 06:45 Reassessment: No changes from previously documented assessment. see triage assessment. bb 07:03 Reassessment: Patient is alert, oriented x 3, equal unlabored respirations, skin bb warm/dry/pink. pt verbalized understanding of and agrees to plan of care discharge instructions given pt ambulated with steady gait to exit. Vital Signs: 05:45 BP 137 / 84; Pulse 60; Resp 16 S; Temp 98(O); Pulse Ox 100% on R/A; Weight 72.57 kg bb (R); Height 5 ft. 3 in. (160.02 cm) (R); Pain 3/10; 05:45 Body Mass Index 28.34 (72.57 kg, 160.02 cm) bb ED Course: 05:32 Patient arrived in ED. kz 05:47 Triage completed. bb 05:47 Arm band placed on Patient placed in waiting room, Patient notified of wait time. bb 06:14 Jon Richardson MD is Attending Physician. flavia 06:45 Iman Edouard, RN is Primary Nurse. bb 06:45 Patient has correct armband on for positive identification. bb 06:45 No provider procedures requiring assistance completed. bb 06:48 Shaheed Barajas DO is Referral Physician. flavia 07:03 Patient did not have IV access during this emergency room visit. bb Administered Medications: 06:50 Drug: Doxycycline 200 mg Route: PO; bb 07:03 Follow up: Response: No adverse reaction bb 06:50 Drug: Benadryl (diphenhydrAMINE) 25 mg Route: PO; bb 07:03 Follow up: Response: No adverse reaction bb Outcome: 06:49 Discharge ordered by . flavia 07:03 Discharged to home ambulatory. bb 07:03 Condition: stable 07:03 Discharge instructions given to patient, Instructed on discharge instructions, follow up and referral plans. medication usage, Demonstrated understanding of instructions, follow-up care, medications, Prescriptions given X 3. 07:04 Patient left the ED. bb Signatures: Jon Richardson MD MD cha Ballard, Brenda, RN RN Criss Medina
[2021-09-28] MEDS ORDERED: DIPHENHYDRAMINE 25 MG TAB/CAP ONE (06:53)
[2021-09-28] MEDS ORDERED: DOXYCYCLINE 100 MG CAP PO ONE (06:53)
[2021-09-28 07:14] VITALS: BP 137/84; TEMP 98; O2SAT 100
== END 2021-09-28 07:04 | disposition home or self-care (01) ==
LOC: ER 05:31
DX: S90.862A Insect bite (nonvenomous), left foot, initial encounter (principal); Z88.0 Allergy status to penicillin; Z88.1 Allergy status to other antibiotic agents; Z88.2 Allergy status to sulfonamides; Z88.8 Allergy status to other drugs, medicaments and biological substances
CPT/HCPCS: 99283